=== PATIENT | male | born 1945 | race Caucasian/White ===

== ENCOUNTER → 2018-07-21 | Outpatient (CLI) | payer OTHER ==
[~2018-07-21] MED LIST: IOPAMIDOL (ISOVUE-300) 100 ML BTL ONE
== END ==
LOC: FIMAGING 13:38
PROVIDERS: ATTEND Internal Medicine Pulmonary Disease
DX: R59.0 Localized enlarged lymph nodes (principal); R91.8 Other nonspecific abnormal finding of lung field; I25.10 Atherosclerotic heart disease of native coronary artery without angina pectoris; R05 Cough; R06.02 Shortness of breath; R16.1 Splenomegaly, not elsewhere classified
CPT/HCPCS: Q9967

== ENCOUNTER 2018-07-27 12:36 | Day surgery (SDC) | payer OTHER ==
[2018-07-27] MEDS ORDERED: ALBUTEROL 3 ML DEYVIAL IH ONE (13:11)
[2018-07-27] MEDS ORDERED: NS 500 ML IV ONE (13:11)
[2018-07-27] MEDS ORDERED: LIDOCAINE 1% 2 ML INJ ID PRN (13:11)
[2018-07-27] MEDS ORDERED: LIDOCAINE 1% 300 MG/30 ML SDV ONE (13:14)
[2018-07-27] MEDS ORDERED: fentaNYL 100 MCG/2 ML INJ ONE ×3 (14:08→17:06)
[2018-07-27] MEDS ORDERED: MIDAZOLAM 2 MG/2 ML VIAL ONE (14:08)
[2018-07-27] MEDS ORDERED: EPINEPHrine 1 MG/10 ML SYR IVP ONE (14:09)
[2018-07-27] MEDS ORDERED: EPINEPHrine 1 MG/ML INJ ONE (14:20)
--- NOTE | 2018-07-27 14:28 | PDHPUP ---
History & Physical Update H&P update statement: This history and physical update is based on an assessment of the patient which was completed after admission or registration (within 24 hours), but prior to the surgery/procedure. H&P update: H&P reviewed & patient examined, no change in patient's condition since H&P completed
--- NOTE | 2018-07-27 14:28 | PDPROPOC ---
Sedation Plan of Care Sedation Plan of Care: vital signs stable, mental status noted, patient educated of risks, benefits, alternatives ASA Classification: ASA 2 Mallampati Score: Class 2 Mallampati Reference Image: Patient passed 3-3-2 rule?: Yes
[2018-07-27] MEDS ORDERED: MIDAZOLAM 2 MG/2 ML VIAL IVP ONE (15:00)
[2018-07-27] MEDS ORDERED: fentaNYL 100 MCG/2 ML INJ IVP ONE (15:00)
[2018-07-27] MEDS ORDERED: PROPOFOL 200 MG/20 ML VIAL ONE (17:06)
--- NOTE | 2018-07-27 17:11 | SOAPPROG ---
SOAP Progress Note Assessment/Plan: Assessment:Plan: see full dictated consult 72 y/o male with FB in stomach urgent EGD with anesthesia Jose Luis Kelley MD [phone] 07/27/18 17:10 Objective: Vital Signs Temp Pulse Resp BP Pulse Ox 36.6 C 60 16 85/65 L 95 07/27/18 16:50 07/27/18 13:23 07/27/18 16:51 07/27/18 17:01 07/27/18 17:01 ICD10 Worksheet Patient Problems: Problems Problem Status Onset Foreign body alimentary tract Acute - ICD10 Problem Qualifiers (1) Foreign body alimentary tract
[2018-07-27] MEDS ORDERED: ONDANSETRON 4 MG/2 ML VIAL ONE (17:15)
[2018-07-27] MEDS ORDERED: SUGAMMADEX SODIUM 200 MG/2 ML VIAL IVP ONE (17:24)
[2018-07-27] MEDS ORDERED: ROCURONIUM 50 MG/5 ML VIAL ONE (17:24)
[2018-07-27] MEDS ORDERED: ALBUTEROL HFA ANES ONLY 200 PUFFS/8.5 GM MDI IH ONE (17:25)
[2018-07-27] MEDS ORDERED: fentaNYL 100 MCG/2 ML INJ IVP PRN (17:38)
[2018-07-27] MEDS ORDERED: NALOXONE HCL 0.4 MG/ML INJ IVP PRN (17:38)
[2018-07-27] MEDS ORDERED: ONDANSETRON 4 MG/2 ML VIAL IVP PRN (17:38)
--- NOTE | 2018-07-27 17:38 | PDANEPAE ---
ANE History of Present Illness EGD ANE Past Medical History - Cardiovascular History Hx Hypertension: No Hx Arrhythmias: No Hx Chest Pain: No Hx Coronary Artery / Peripheral Vascular Disease: No Hx CHF / Valvular Disease: No Hx Palpitations: No - Pulmonary History Hx COPD: No Hx Asthma/Reactive Airway Disease: No Hx Recent Upper Respiratory Infection: No Hx Oxygen in Use at Home: No Hx Sleep Apnea: No Sleep Apnea Screening Result - Last Documented: Positive Pulmonary History Comment: chronic cough - Neurologic History Hx Cerebrovascular Accident: No Hx Seizures: No Hx Dementia: No - Endocrine History Hx Diabetes: No - Renal History Hx Renal Disorders: No - Liver History Hx Hepatic Disorders: No - Neurological & Psychiatric Hx Hx Neurological and Psychiatric Disorders: No - Cancer History Hx Cancer: No - Congenital Disorder History Hx Congenital Disorders: No - GI History Hx Gastrointestinal Disorders: Yes Gastrointestinal History Comment: acid reflux - Other Health History Other Health History: cataracts removed - Chronic Pain History Chronic Pain: No - Surgical History Prior Surgeries: subdural hematoma sx. right sx x 4. tonsilectomy. bilat cataract sx ANE Review of Systems Review of Systems: - Exercise capacity METS (RN): 4 METS ANE Patient History - Allergies Allergies/Adverse Reactions: No Known Allergies Allergy (Verified 07/22/18 17:25) - Home Medications Home Medications: Rosuvastatin Calcium 07/22/18 [Last Taken 07/26/18 20:00] Testosterone 07/22/18 [Last Taken 07/27/18 06:00] - NPO status NPO Since - Liquids (Date): 07/27/18 NPO Since - Liquids (Time): 10:23 NPO Since - Solids (Date): 07/26/18 NPO Since - Solids (Time): 20:30 - Smoking Hx Smoking Status: Never smoked - Family Anes Hx Family Hx Anesthesia Complications: none ANE Labs/Vital Signs - Vital Signs Blood Pressure: 85/65 Heart Rate: 60 Respiratory Rate: 16 O2 Sat (%): 95 Height: 187.96 cm Weight: 95.472 kg ANE Physical Exam - Airway Neck exam: FROM Mallampati Score: Class 2 Mouth exam: normal dental/mouth exam - Pulmonary Pulmonary: clear to auscultation - Cardiovascular Cardiovascular: regular rate and rhythym, no murmur, rub, or gallop - ASA Status ASA Status: II, E ANE Anesthesia Plan Anesthesia Plan: general endotracheal anesthesia
--- NOTE | 2018-07-27 17:39 | POSTANESTH ---
Post Anesthetic Evaluation Cardiovascular Status: Normal, Stable Respiratory Status: Normal, Stable Level of Consciousness/Mental Status: Can Participate in Eval, Alert and Oriented Pain Control: Adequate, Prn Tx Ordered Nausea/Vomiting Control: Adequate, Prn Tx Ordered Complications Possibly Related to Anesthesia: None Noted
--- NOTE | 2018-07-27 17:48 | GIREPORT ---
[facility] - Endoscopy Department Patient Name: Sawyer De La Cruz Procedure Date: 07/27/2018 4:52 PM Patient Type: Outpatient Attending MD/ ER Physician: Jose Luis Kelley MD Procedure: Upper GI endoscopy Indications: Foreign body in the stomach Providers: Jose Luis Kelley MD Referring MD: Cindy Harding MD Medicines: General Anesthesia Complications: No immediate complications. Estimated blood loss: Minimal. Description of Procedure: After obtaining informed consent, the endoscope was passed under direct vision. Throughout the procedure, the patient's blood pressure, pulse, and oxygen saturations were monitored continuously. The Endoscope was intro duced through the mouth, and advanced to the third part of duodenum. The uppe r GI endoscopy was accomplished without difficulty. The patient tolerated th e procedure well. Findings: The examined esophagus was normal. Needle were found in the gastric fundus. Removal was accomplished with a large-capacity forceps and a foreign body hays. Estimated blood loss: n one. Multiple semi-sessile polyps with no bleeding and no stigmata of recent bleeding were found on the greater curvature of the gastric body. Biops ies were taken with a cold forceps for histology. Estimated blood loss was minimal. Diffuse mildly erythematous mucosa without bleeding was found in the ga stric antrum. Biopsies were taken with a cold forceps for histology. Estimate d blood loss was minimal. The examined duodenum was normal. The exam was otherwise without abnormality. Estimated Blood Loss: Estimated blood loss was minimal. Post Op Diagnosis: - Normal esophagus. - Needle were found in the stomach. Removal was successful. - Multiple gastric polyps. Biopsied. - Erythematous mucosa in the antrum. Biopsied. - Normal examined duodenum. - The examination was otherwise normal. Recommendation: - Await pathology results. - My office will call with the pathology result with 5-7 days. If you h ave not heard from my office by 14, do not assume the pathology is misty l, please call [phone] to get the pathology results. - Suspect fundic gland polyps. If correct, no f/u necessary other than checking h pylori status if not shown on pathology. - Continue present medications. - Patient has a contact number available for emergencies. The signs and symptoms of potential delayed complications were discussed with the pat ient. Return to normal activities tomorrow. Written discharge instructions we re provided to the patient. - Discharge patient to home (ambulatory). - Return to primary care physician as previously scheduled. - Thank you for allowing me to help in your patient's care. Do not hesi deleon to call with any questions. Attending Participation: I personally performed the entire procedure. Allie Kramer M.D Jose Luis Kelley MD 07/27/2018 5:47:38 PM This report has been signed electronicallyMatthew MD Allie Number of Addenda: 0 Note Initiated On: 07/27/2018 4:52 PM [email or web address]
[2018-07-27 18:38] VITALS: BP 124/60
--- NOTE | 2018-07-27 18:43 | GCON ---
[f rep st] CONSULTATION DATE OF CONSULTATION: 07/27/2018 REQUESTING PHYSICIAN: Phillip Galdamez. INDICATION FOR CONSULTATION: Foreign body in the stomach. HPI: The patient is a very pleasant 72-year-old male with a past medical history significant for GERD, BPH, coronary disease, who had abnormal CT scan with pulmonary nodules and was referred over to bronchoscopy. He underwent bronchoscopy today and there was some malfunction of the needle equipment and one of the needles came off. He coughed that up and actually swallowed it down into his stomach. A chest x-ray performed afterwards suggested it was in the trachea, but a CT scan showed that it was in the stomach. Because of the needle in the stomach I was called to help and remove that. Sawyer does not have any significant GI complaints. He does have GERD for about 20 years, which is improved significantly with the use of omeprazole. He does not describe any dysphagia, odynophagia, or early satiety. He is currently working at [employer]. I am now here to help and remove a needle in his stomach. PAST MEDICAL HISTORY: BPH, coronary artery disease on a statin, history of subdural hematoma, hyperlipidemia. PAST SURGICAL HISTORY: Drainage of the hematoma with plates placed in. He has had eye surgery, knee surgery, and tonsillectomy. MEDICATIONS: At home include rosuvastatin, testosterone cream, and omeprazole 20 mg. ALLERGIES: No known drug allergies. FAMILY HISTORY: Hyperlipidemia. No family history of colon cancer or colon polyps to his knowledge. SOCIAL HISTORY: no tobacco, occ alcohol REVIEW OF SYSTEMS: A complete review of systems performed is negative other than noted in the HPI. PHYSICAL EXAM: GENERAL: Well developed, well nourished, no acute distress. He is sitting comfortably in his bed. VITAL SIGNS: 115/51 with a pulse of 62, respirations are 16, 97% on room air. HEENT: Eyes: Anicteric. REMY, EOMI. Mouth: No lesions. Moist membranes. NECK: Supple. Full range of motion. No JVD. BACK: No spine tenderness. No CVA tenderness. LUNGS: Coarse breath sounds. No rhonchi. No rales. No wheezes. CARDIAC: S1, S2. Regular rate and rhythm. I do not appreciate any murmurs, rubs or gallops. ABDOMEN: Bowel sounds normal in pitch and frequency. ABDOMEN: Soft and nontender. No hepatosplenomegaly. EXTREMITIES: There is no cyanosis, clubbing, or edema. NEUROLOGIC: Cranial nerves intact, nonfocal. SKIN: No stigmata of advanced liver disease. LABORATORY DATA: No laboratory data from today. Laboratory data from July 14 showed sodium 138, potassium 4.5, chloride 106, bicarb 25, BUN 20, creatinine 1.2, glucose 89, calcium 9.2, bilirubin 0.5, AST 23, ALT 38, alkaline phosphatase 66, total protein 6.5, albumin 4.2. A chest CT performed today reveals no definite visualization of radiopaque foreign object. The CT scan of the abdomen revealed that it was in the stomach. I do not have the official report of the CT of the abdomen currently. ASSESSMENT: 1. Foreign body/needle in the stomach. 2. History of longstanding reflux, well controlled on gastroesophageal reflux disease. 3. Pulmonary nodules being worked up by Pulmonary. RECOMMENDATIONS: 1. Urgent EGD with anesthesia for removal of this needle from the stomach. 2. If there is no evidence of esophagitis, the correct amount of acid reducing medication with the least amount that controls his symptoms long-term. He is doing well on a PPI and we will leave him on that for approximately at least a month or 2 and then try to decrease it pending results of EGD. 3. Further recommendations following results of EGD. Thank you for involving me in this patient's healthcare. Do not hesitate to call me. Sincerely, /[id number]/MODL MTDD
--- NOTE | 2018-07-27 18:52 | SUROPNOTE ---
[facility] Operative Report - Surgery PROCEDURE Flexible bronchoscopy with fine-needle aspiration of subcarinal node, transbronchial biopsies and bronchoalveolar lavage Procedure Batterboard Setter: Enriqueta Galdamez MD Preoperative diagnosis: pulmonary nodules, lymphadenopathy Postoperative diagnosis: pulmonary nodules, lymphadenopathy Consent: Obtained from patient prior to procedure after explanation of the procedure, alternatives, risks, and benefits. Anesthesiologist NA Sedation Type: moderate sedation Sedation Medications: Fentanyl, Versed Total moderate sedation time was 45 min. Vitals and cardiopulmonary status were monitored continuously by dedicated RN Medications: Topical 2% lidocaine: 3 cc via nebulizer, Topical 1% lidocaine: 12 cc via bronchoscope. Procedure Summary: Time out was performed. The bronchoscope was then introduced via the mouth into the posterior oropharynx. Vocal cords were visualized and anesthetized with 1% lidocaine. Next the bronchoscope was passed through the vocal cords into the tracheobronchial tree. The entire tracheobronchial tree was examined. Airway mucosa appeared normal throughout. There were scant clear secretions. Next, a 19 gauge BUCKLEY transbronchial aspiration needle was passed through the bronchoscope. The sheath passed through the bronchoscope with ease until the metal hub of the sheath was visualized extending from the end of the bronchoscope. Next, the 19 gauge needle with the 21 gauge inner needle was extended through the sheath under direct visualization and inserted into the souleymane without difficulty. The needle was extracted from the souleymane and back into the sheath. There was mild resistance noted when pulling the needle back into the sheath but no deformity was noted. The entire apparatus was removed from the working channel of the bronchoscope to expel the specimen into the specimen container. Prior to reinserting the device in the bronchoscope, it was noted that wrapped wire had unraveled and the inner wire was further retracted into the sheath. The outer 19 gauge needle was present but the inner 21 gauge needle was unable to be visualized. The distal sheath was manipulated in attempts of visualizing the inner needle but was unsuccessful. Additional fiberoptic inspection of the tracheobronchial tree was without visualization of the needle. Next 6 passes were taken with Buckley transbronchial aspiration needles and placed in a specimen cup. Subsequently transbronchial biopies were taken from the right middle lobe. Finally, a formal bronchoalveolar lavage with instillation of 100 cc of saline return of 20 cc of light pink fluid. Towards the end of the procedure patient began to cough and the inner 21 gauge needle from the original BUCKLEY 19 gauge transbronchial aspiration needle was transiently visible. The needle was not attempted to be removed under moderate sedation through patient's vocal cords due to patient safety concerns given suboptimal visualization due to respiratory variation, cough and needle movement. An immediate post procedure chest x-ray confirmed the needle in the distal trachea. Patient went for subsequent CT to confirm the endobronchial needle location. Patient had postprocedural cough and on the way to CT patient' s cough subsided. CT chest visualized needle in patients stomach which suggests that he coughed needle through his vocal cords than past there is esophagus into his stomach. 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 Dr. Jose Luis Kelley was immediately notified and successfully removed the needle. There was no immediate injury or harm to patient. The entire apparatus and including the detached needle was saved in a secure locked area for further review. See Dr Kelley's separate procedure note for detailed on the endoscopic needle extraction EBL none Complications: Device failure~of a BUCKLEY 19 gauge transbronchial aspiration needle. The inner 21 gauge needle~detached/broke from the inner wire retained in patient 's airway. He subsequently coughed the needle into his oral pharynx which subsequently passed into his stomach and was successfully removed with an endoscope Impression: lymphadenopathy, pulmonary nodules Items to Follow-up: subcarinal FNA, transbronchial biopsies, and bronchoalveolar lavage S Sy Galdamez MD Pulmonary [facility] Medicine [phone]
== END 2018-07-27 18:36 | disposition home or self-care (01) ==
LOC: FSGY 12:36
PROVIDERS: ATTEND Internal Medicine Pulmonary Disease
PROC: 0DB68ZX Excision of Stomach, Via Natural or Artificial Opening Endoscopic, Diagnostic (ICD-10-PCS; 2018-07-27)
PROC: 0DC68ZZ Extirpation of Matter from Stomach, Via Natural or Artificial Opening Endoscopic (ICD-10-PCS; 2018-07-27)
PROC: 07978ZX Drainage of Thorax Lymphatic, Via Natural or Artificial Opening Endoscopic Approach, Diagnostic (ICD-10-PCS; principal; 2018-07-27 14:00)
PROC: 0B958ZX Drainage of Right Middle Lobe Bronchus, Via Natural or Artificial Opening Endoscopic, Diagnostic (ICD-10-PCS; principal; 2018-07-27 14:00)
PROC: 0BBD8ZX Excision of Right Middle Lung Lobe, Via Natural or Artificial Opening Endoscopic, Diagnostic (ICD-10-PCS; principal; 2018-07-27 14:00)
DX: R59.1 Generalized enlarged lymph nodes (principal); R91.8 Other nonspecific abnormal finding of lung field; R05 Cough; T85.698A Other mechanical complication of other specified internal prosthetic devices, implants and grafts, initial encounter; T18.2XXA Foreign body in stomach, initial encounter; Y92.234 Operating room of hospital as the place of occurrence of the external cause; K31.7 Polyp of stomach and duodenum; K21.9 Gastro-esophageal reflux disease without esophagitis; E78.5 Hyperlipidemia, unspecified
CPT/HCPCS: J0171; J2250; J2405; J2704; J3010; J7613

== ENCOUNTER → 2018-08-07 | Outpatient (CLI) | payer OTHER | LOC: FIMAGING 10:59 | PROVIDERS: ATTEND Internal Medicine Pulmonary Disease | DX: J18.9 Pneumonia, unspecified organism (principal) ==

== ENCOUNTER → 2018-08-30 | Outpatient (CLI) | payer OTHER | LOC: FIMAGING 13:34 ==

== ENCOUNTER 2018-09-20 07:37 | Day surgery (SDC) | payer OTHER | END 2018-09-20 12:52 | disposition home or self-care (01) | LOC: FCATH 07:37 ==